=== PATIENT | female | born 2000 | race Two or more races ===

== ENCOUNTER → 2025-01-12 | Outpatient (CLI) | payer MEDICAID, SELFPAY ==
[2025-01-11 16:15] LABS: HCG Qualitative,Urine Negative
--- NOTE | 2025-01-12 11:30 | XR_ITS ---
Examination: CT abdomen with intravenous contrast CT pelvis with intravenous contrast 2-D coronal reconstructions 2-D sagittal reconstructions Date and time of exam: January 12, 2025 at 1203 hours Comparison January 22, 2023 INDICATIONS: Right lower abdominal pain beginning one year ago CTDI: vol (mGy) 9.32 DLP: (mGycm) 533 Technique: Multiple axial sections of the abdomen and pelvis have been obtained. 64 slice high-resolution scanner used. 3 mm axial sections have been obtained, post intravenous injection 60 cc [id number] 2-D sagittal, coronal reconstructions obtained. Low dose protocols were performed. One or more of the following dose reduction techniques were used; automated exposure control, adjustment of the mA and/or KV according to patient size, use of iterative reconstruction technique. Findings: No focal liver or splenic lesions Possible tiny gallstones No renal or ureteral calculi, no hydronephrosis Aorta normal size Normal appendix No bowel obstruction 28 mm left pelvic cyst 18 mm posterior right pelvic cyst No bladder mass or bladder calculi The osseous structures are intact IMPRESSION: Normal appendix Bilateral pelvic cysts, recommend pelvic sonography follow-up
== END | disposition home or self-care (01) ==
LOC: CCTX 11:15
PROVIDERS: Referring Provider Obstetrics & Gynecology; Visit Provider Obstetrics & Gynecology
DX: N83.00 Follicular cyst of ovary, unspecified side (principal); N83.291 Other ovarian cyst, right side; K56.609 Unspecified intestinal obstruction, unspecified as to partial versus complete obstruction; R10.84 Generalized abdominal pain; N90.89 Other specified noninflammatory disorders of vulva and perineum; R10.2 Pelvic and perineal pain; R10.31 Right lower quadrant pain; Z32.00 Encounter for pregnancy test, result unknown
CPT/HCPCS: 74177; 81025; A4649; Q9967